=== PATIENT | male | born 1960 | race Caucasian/White ===

== ENCOUNTER 2021-10-01 14:55 | Emergency (ER) | payer OTHER ==
[~2021-10-01] VITALS: Ht 175.3 cm; Wt 84.0 kg
[2021-10-01] MEDS ORDERED: AMOX1TAB16 MT (15:36)
[2021-10-01] MEDS ORDERED: BACITRACIN ZINC OINT UDPKT TOP ONE (15:45)
[2021-10-01] MEDS ORDERED: IBUPROFEN 600MG TABLET PO ONE (15:45)
[2021-10-01] MEDS ORDERED: TETANUS, DIPHTHERIA, PERTUSSIS VAC/PF 0.5ML (>10YR OLD) IM ONE (15:45)
[2021-10-01 16:52] VITALS: BP 160/87
== END 2021-10-01 16:54 | disposition home or self-care (01) ==
LOC: ER 14:55
DX: S61.452A Open bite of left hand, initial encounter (principal); W54.0XXA Bitten by dog, initial encounter; Y93.89 Activity, other specified; Y92.89 Other specified places as the place of occurrence of the external cause; Y99.8 Other external cause status
CPT/HCPCS: 73130; 90471; 90715; 99283

== ENCOUNTER 2024-01-08 10:12 | Emergency (ER) | payer OTHER ==
[~2024-01-08 10:12] MED LIST: AMOX1TAB16 MT
== END 2024-01-08 10:28 | disposition left against medical advice (07) ==
LOC: ER 10:12
DX: H57.12 Ocular pain, left eye (principal); Z53.21 Procedure and treatment not carried out due to patient leaving prior to being seen by health care provider